=== PATIENT | female | born 1995 | race Caucasian/White ===

== ENCOUNTER 2016-09-16 23:53 | Emergency (ER) | payer OTHER ==
[~2016-09-16] VITALS: Ht 157.5 cm; Wt 86.4 kg
[~2016-09-16 23:53] MED LIST: AMOX500T2 PO; DICY10CA56 PO; DOCU-41 PO; FERR-83 PO; FLUO40CA PO; HYDR-4003 PO; IBUP800T28 PO; METO5TAB78 PO; OXYC1TAB24 PO; PANT40TA2 PO
[2016-09-16 23:57] VITALS: BP 123/81; PULSE 120; RESP 16; O2SAT 97
--- NOTE | 2016-09-17 01:42 | ED.REPORT ---
HPI-NVD Date of Service Sep 17, 2016 ED Provider: Anoop Dow MD Pt is a 20 y.o. female with a hx of GERD and recurrent- UTI's who presents to the ED c/o nausea, vomiting, and diarrhea onset around 1500. Associated headache and abdominal pain. She denies dysuria and changes in urination. 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 Nursing Notes Stated Complaint: VOMITING, DIARRHEA Chief Complaint: Female Abdominal Pain Nursing Notes Reviewed: Yes Allergies: Coded Allergies: pineapple (Verified Adverse Reaction, Severe, Rash,Itching,, 09/11/15) Scheduled Amoxicillin (Amoxicillin) 500 Mg Tablet 500 MG PO TID Dicyclomine (Bentyl) 10 Mg Capsule 10 MG PO TID Ferrous Sulfate (Ferrous Sulfate) 325 Mg Tablet 325 MG PO TID Fluoxetine (Fluoxetine) 40 Mg Capsule 40 MG PO DAILY Metoclopramide (Reglan) 5 Mg Tablet 5 MG PO BIDAC Pantoprazole DR (Protonix) 40 Mg Tablet 40 MG PO QPM Scheduled PRN Docusate Sodium (Colace) 100 Mg Capsule 100 MG PO BID PRN PRN For Constipation Hydrocodone-Acetaminophen 5-325 mg (Hydrocodone-Acetaminophen 5-325 mg) 1 Each Tablet 1-2 EACH PO Q4 PRN PRN For Pain Hydrocodone-Acetaminophen 5-325 mg (Hydrocodone-Acetaminophen 5-325 mg) 1 Each Tablet 1 TABLET PO Q4H PRN PRN For Pain Ibuprofen (Ibuprofen) 800 Mg Tablet 600 MG PO Q6H PRN PRN For Pain Ondansetron ODT (Ondansetron ODT) 8 Mg Tab.rapdis 8 MG PO QID PRN PRN For Pain oxyCODONE-Acetaminophen 5-325 mg (oxyCODONE-Acetaminophen 5-325 mg) 1 Each Tablet 1-2 TAB PO Q4H PRN PRN For Pain General Time Seen by MD: 01:35 Chief Complaint Vomiting Hx Obtained From: Patient Arrived By: Walk-in Onset Occurred: 5 - 8 hours ago Symptom Duration: Since onset Location: : Diffuse Quality: Painful Severity: Current: Moderate Recent Healthcare: No recent doctor visit, No recent hospitalization Similar Sx Previous: No Past Medical History Past Medical History GERD Recurrent UTIs Gastroparesis Pre-diabetes Past Surgical History ERCP Reports: Cholecystectomy Family History Reviewed, not relevant Smoking History Never Smoker Social History Alcohol Use: Denies alcohol use Drug Use: THC Other Social History: Good social support Ambulatory Status Independent Review of Systems GI: Reports: Diarrhea, Nausea, Vomiting Neurologic: Reports: Headache Complete sys rev & neg: except as marked. Female: Denies: Dysuria, Urinary frequency, Urinary urgency, Urination decreased, Urination increased Physical Exam Initial Vital Signs Vital Signs (First) Date Time Temp Pulse Resp B/P Pulse Ox O2 Delivery O2 Flow Rate FiO2 09/16/16 23:57 36.6 120 16 123/81 97 09/17/16 03:49 Room Air Initial VS: Reviewed, Vital signs abnormal Head / Eyes: Atraumatic, Normocephalic Cardiovascular: Regular rate & rhythm, Heart sounds normal, Intact distal pulses Extremities: Vascular intact, Neuro intact Skin: Warm, Dry, No cyanosis Neurologic: Alert, Oriented, Nonfocal Psychiatric: Mood/affect normal, Behavior normal, Normal thought content General/Constitutional: Awake, Alert, Well appearing, Well developed, Well hydrated, Well nourished, Not toxic appearing Appearance / Presentation: Positive: Obese Abdomen: Atraumatic, Soft, No guarding, No rebound, No distention Tenderness/Guarding/Rebound: Positive: Tender diffuse Cardiovascular: Regular rhythm, Heart sounds NL, No gallop, No murmurs, No rubs , Cap refill not delayed, Peripheral circulation NL Heart Rate / Rhythm: Positive: Tachycardia Interpretation & Diagnostics Lab Results Interpretation Result Diagram: 09/17/16 0130 09/17/16 0130 Test 09/17/16 01:30 White Blood Count 14.7th/mm3 (3.8-10.1) Red Blood Count 5.84mil/mm3 (3.90-5.20) Hemoglobin 12.6g/dL (12.0-15.6) Hematocrit 40.8% (35.0-46.0) Mean Corpuscular Volume 69.9fL (81-100) Mean Corpuscular Hemoglobin 21.6pg (27.0-35.0) Mean Corpuscular Hemoglobin Concent 30.9% (32.0-37.0) Red Cell Distribution Width 17.5% (12.3-15.4) Platelet Count 333bil/L (150-400) Neutrophils (%) (Auto) 90.7% (40-74) Lymphocytes (%) (Auto) 5.7% (14-46) Monocytes (%) (Auto) 2.9% (4-12) Eosinophils (%) (Auto) 0.3% (0-5) Basophils (%) (Auto) 0.1% (0-3) Hold Purple Top Tube Received (Received) Hold Blue Top Tube Received (Received) Sodium Level 138mEq/L (134-144) Potassium Level 4.2mEq/L (3.5-5.2) Chloride Level 101mEq/L (97-108) Carbon Dioxide Level 22mmol/L (18-29) Blood Urea Nitrogen 18mg/dL (6-20) Creatinine 0.48mg/dL (0.57-1.00) Estimat Glomerular Filtration Rate 239mL/min (>59) Glucose Level 132mg/dL (60-99) Calcium Level 9.3mg/dL (8.5-10.1) Magnesium Level 2.1mg/dL (1.6-2.6) Total Bilirubin 0.4mg/dL (0.0-1.2) Aspartate Amino Transf (AST/SGOT) 24U/L (0-50) Alanine Aminotransferase (ALT/SGPT) 28U/L (0-32) Alkaline Phosphatase 126U/L (25-150) Total Protein 8.2g/dL (6.4-8.4) Albumin 4.8g/dL (3.4-5.0) Lipase 22U/L (13-60) Hold [place] Top Tube Received (Received) Hold [place] Top Tube Received (Received) Lab Results Interpretation: Elevated white blood count, mildly elevated nonfasting glucose. 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 She has nausea vomiting and diarrhea and elevated white count consistent with norovirus which is common in the community right now. She is treated with ondansetron and Imodium and will exclude herself from the daycare setting until her symptoms are completely gone. Hand washing emphasized. Source of Hx: Old records Counseled Regarding: Diagnosis, Lab results, Need for follow-up, When/why to return to ED Discharge & Departure Impression: Primary Impression: Gastroenteritis Disposition: Home Discharge Condition All VS Reviewed: Yes Condition: Stable Patient Instructions: Gastroenteritis (ED) Additional Instructions: Your nausea and vomiting is likely due to a viral gastroenteritis, commonly norovirus. This should be self-limiting over 24 hours or so. Drink plenty of fluids, and use ondansetron and Imodium as needed. Referrals: Rae Lara PA-C (PCP) Riya Attestation Portions of this note were transcribed by Vane Cruz. I, Dr. Dow personally performed the history, physical exam and medical decision-making; I reviewed and confirmed the accuracy of the information in the transcribed note. Signed by: Riya Palacio, 09/17/16 and 0336. copies to: Rae Lara PA-C, Howard L MD Sep 17, 2016 01:42 VANE CRUZ Sep 17, 2016 01:45
[2016-09-17 02:09] LABS: BASOPHILS % (AUTO) 0.1 % (0-3); EOSINOPHILS % (AUTO) 0.3 % (0-5); MONOCYTES % (AUTO) 2.9 % (4-12); Mean Corpuscular Hemoglobin 21.6 pg (27.0-35.0); Mean Corpuscular Volume 69.9 fL (81-100); NEUTROPHILS % (AUTO) 90.7 % (40-74); Platelet Count 333 bil/L (150-400)
[2016-09-17] MEDS ORDERED: 0.9% Sodium Chloride 1,000 ML IV ONE (02:10)
[2016-09-17] MEDS ORDERED: Ondansetron 2 mg/mL 2 mL Inj IVPUSH PRN (02:10)
[2016-09-17 02:28] LABS: Magnesium 2.1 mg/dL (1.6-2.6)
[2016-09-17] MEDS ORDERED: ONDA8TAB10 PO (03:31)
[2016-09-17 03:49] VITALS: BP 100/57; PULSE 101; RESP 16; O2SAT 96
== END 2016-09-17 03:48 | disposition home or self-care (01) ==
LOC: SED 23:53
DX: K52.9 Noninfective gastroenteritis and colitis, unspecified (principal); K21.9 Gastro-esophageal reflux disease without esophagitis; Z91.018 Allergy to other foods
CPT/HCPCS: 36415; 80053; 83690; 83735; 85025; 96361; 96374; 99284; J2405; J7030